=== PATIENT | male | born 1955 | race Caucasian/White ===

== ENCOUNTER 2020-07-30 08:15 | Day surgery (SDC) | payer MEDICARE, OTHER ==
[~2020-07-30] VITALS: Ht 162.6 cm; Wt 57.7 kg
[~2020-07-30 08:15] MED LIST: NO HOME MEDICATIONS; NORCO 325 MG-7.1 TAB PO; PROSCAR 5MG5 MG PO; ROXICODONE 55 MG/TAB PO
[2020-07-30 09:10] VITALS: BP 119/75; PULSE 59; TEMP 98.8
[2020-07-30 10:05] VITALS: BP 103/73; PULSE 80; TEMP 97.1
--- NOTE | 2020-07-30 10:05 | NUR ---
Pt to GI bay 4 via cart from [facility]. Pt drowsy, but awakens easily. Pt denies pain or nausea. Pt ambulates to recliner with stand by assistance x2. Warm blankets provided. Coffee given per pt request. in room so that can consultate with both of them. Call light within reach.
[2020-07-30 10:20] VITALS: BP 109/96; PULSE 66
--- NOTE | 2020-07-30 10:20 | NUR ---
in room consulting with pt and . Call light within reach.
[2020-07-30 10:35] VITALS: BP 134/70; PULSE 59
--- NOTE | 2020-07-30 10:35 | NUR ---
IV site discontinued with all parts intact. Discharge instructions reviewed. Pt and voice understanding. Pt up to dress. Call light within reach.
--- NOTE | 2020-07-30 10:55 | NUR ---
Pt escorted to private car via wheel chair. Pt accompanied home by his .
== END 2020-07-30 10:55 | disposition home or self-care (01) ==
LOC: SDCO 08:15
DX: C16.0 Malignant neoplasm of cardia (principal); K21.9 Gastro-esophageal reflux disease without esophagitis; K22.2 Esophageal obstruction; K44.9 Diaphragmatic hernia without obstruction or gangrene; F17.290 Nicotine dependence, other tobacco product, uncomplicated; Z79.899 Other long term (current) drug therapy
CPT/HCPCS: J2704; J7120

== ENCOUNTER → 2020-08-21 | Outpatient (CLI) | payer MEDICARE, OTHER | LOC: COL.RAD 08:07 | DX: C15.9 Malignant neoplasm of esophagus, unspecified (principal) | CPT/HCPCS: A9585 ==

== ENCOUNTER → 2020-09-10 | Outpatient (CLI) | payer MEDICARE, OTHER ==
[~2020-09-10] MED LIST changes: +FLOMAX 0.40.4 MG/CAP PO; +OXYCODONE H5 MG/5 ML PO; +SODIUM BICARBO650 MG PO; +TYLENOL 500MG500 MG PO; +ZOFRAN ODT4 MG PO
== END ==
LOC: COL.LAB 09:54
DX: Z20.822 Contact with and (suspected) exposure to COVID-19 (principal)

== ENCOUNTER → 2020-09-23 | Outpatient (CLI) | payer MEDICARE, OTHER | LOC: COL.LAB 08:41 | DX: Z20.822 Contact with and (suspected) exposure to COVID-19 (principal) ==

== ENCOUNTER 2020-11-07 10:23 | Inpatient (IN) | payer MEDICARE, OTHER ==
[~2020-11-07 10:23] MED LIST changes: -FLOMAX 0.40.4 MG/CAP PO; -OXYCODONE H5 MG/5 ML PO; -SODIUM BICARBO650 MG PO; -TYLENOL 500MG500 MG PO; -ZOFRAN ODT4 MG PO
[2020-11-07] MEDS ORDERED: OXYCODONE H5 MG/5 ML PO (10:57)
[2020-11-07] MEDS ORDERED: FLOMAX 0.40.4 MG/CAP PO (10:58)
[2020-11-07] MEDS ORDERED: ZOFRAN ODT4 MG PO (10:59)
[2020-11-07] MEDS ORDERED: SODIUM BICARBO650 MG PO (10:59)
[2020-11-07] MEDS ORDERED: TYLENOL 500MG500 MG PO (11:00)
--- NOTE | 2020-11-07 12:17 | NUR ---
Pt recieved FOLFOX (oxaliplatin and Fluorouracil) with the infusion ending on 10/29. This should have cleared his system at this point as is present in stool for 5 days after infusion. The office nurse did advise me that his K+ has been running low with after treatment labs showing 3.4 but over the last few days has been 2.5-2.7 with recieving 80mEq in that 2 day time period.
[2020-11-07 12:18] VITALS: BP 95/69; PULSE 109; TEMP 97.3
[2020-11-07 13:41] LABS: HEMATOCRIT 44.2 % (42.0-52.0); HEMOGLOBIN 14.3 g/dl (13.5-18.0); MEAN CELL VOLUME 90 fl (80.0-100.0); MEAN CORPUSCULAR HEMOGLOBIN 29 pg (27.0-31.0); MEAN CORPUSCULAR HGB CONC 32 g/dl (33.0-37.0); MEAN PLATELET VOLUME 12.5 fl (7.4-10.4); PLATELET COUNT 92 K/mm3 (130-400); RED BLOOD COUNT 4.93 M/mm3 (4.20-5.60); REDCELL DISTRIBUTION WIDTH-CV 15.5 % (11.5-14.5)
--- NOTE | 2020-11-07 13:48 | NUR ---
Unable to get blood specimen from port despite repositioning pt. Old needle flushed and dc'd. Following protocal, skin prepped with chlorhexadine, pt reports that skin prep felix and small areas of irritation noted. Accessed port with 1" ascencio needle and able to get blood return easily. Labs drawn after line flushed and waste blood discarded. New dressing and cap applied.
[2020-11-07 13:53] LABS: ALBUMIN 2.9 gm/dL (3.5-5.0); BILIRUBIN,TOTAL 0.3 mg/dL (0.0-1.0); CALCIUM 8.8 mg/dL (8.4-10.2); CREATININE, serum 1.22 (0.66-1.25); TOTAL PROTEIN 5.8 gm/dL (6.4-8.2)
[2020-11-07 13:57] LABS: POTASSIUM 2.6 mmol/L (3.4-5.0)
[2020-11-07 14:53] LABS: BAND 20 % (0-10); BASOPHIL 1 % (0-2); LYMPHOCYTE 11 % (20.0-51.0); MYELOCYTE 2 % (0-0); NEUTROPHILS 38 % (42.0-75.2)
[2020-11-07 14:54] LABS: ANISOCYTOSIS 1+; PLATELET ESTIMATE DECREASED (NORMAL)
[2020-11-07 14:55] LABS: HYPOCHROMIA 1+
[2020-11-07 16:43] LABS: COLLECTION METHOD CLEAN CATCH
[2020-11-07 16:54] LABS: MUCOUS Present /lpf; PH 6 (5-8); SQUAMOUS EPITHELIAL 0-2 /hpf; URINE APPEARANCE Hazy; URINE BACTERIA None Seen /hpf; URINE BILIRUBIN Negative (NEGATIVE); URINE BLOOD Negative (NEGATIVE); URINE COLOR Yellow; URINE GLUCOSE Negative (NEGATIVE); URINE KETONE Negative (NEGATIVE); URINE LEUKOCYTE ESTERASE Negative (NEGATIVE); URINE NITRATE Negative (NEGATIVE); URINE PROTEIN(semi-quant) 1+ (NEGATIVE); URINE RBC 0-2 /hpf; URINE UROBILINOGEN Negative (NEGATIVE)
[2020-11-07 16:57] VITALS: BP 80/54; PULSE 124; TEMP 97.8
[2020-11-07 17:36] VITALS: BP 84/54; PULSE 113
--- NOTE | 2020-11-07 17:58 | NUR ---
Patient sitting up in bed, at the bedside. A&Ox3, not able to talk much so has been speaking for the patient. Port CDI, fluids infusing. VSS, BP hypotensive, doctor aware. Peg tube RLQ, CDI, clamped. SCD bilateral legs. No further needs expressed from the patient. Call light within reach.
[2020-11-07 18:28] LABS: CREATININE, serum 1.09 (0.66-1.25); POTASSIUM 3.5 mmol/L (3.4-5.0)
[2020-11-07 21:15] VITALS: BP 93/65; PULSE 81; TEMP 98.3
[2020-11-07 22:12] LABS: CALCIUM 8.2 mg/dL (8.4-10.2); CREATININE, serum 1.08 (0.66-1.25); POTASSIUM 3.5 mmol/L (3.4-5.0)
--- NOTE | 2020-11-07 23:19 | NUR ---
Reviewed lab results with Dr. Ortiz NON: Potassium 20meq IVPB x 1 now, continue 300ml H2o flushes per pej q 2 hours throughout pm shift, will recheck labs in the morning. Updated Doris Deutsch on updated plan of care. Updated patient on plan of care changes. Verbalized understanding.
[2020-11-07 23:21] VITALS: BP 144/64; PULSE 112; TEMP 97.9
[2020-11-08 00:30] LABS: CLOSTRIDIUM DIFF A/B NEG; CLOSTRIDIUM DIFF A/B INTERP No C.diff present
[2020-11-08 03:09] LABS: CALCIUM 8.1 mg/dL (8.4-10.2); CREATININE, serum 1.04 (0.66-1.25); POTASSIUM 3.5 mmol/L (3.4-5.0)
[2020-11-08 03:55] VITALS: BP 122/71; PULSE 117; TEMP 97.8
[2020-11-08 06:34] LABS: HEMATOCRIT 38.3 % (42.0-52.0); HEMOGLOBIN 12.4 g/dl (13.5-18.0); MEAN CELL VOLUME 90 fl (80.0-100.0); MEAN CORPUSCULAR HEMOGLOBIN 29 pg (27.0-31.0); MEAN CORPUSCULAR HGB CONC 32 g/dl (33.0-37.0); MEAN PLATELET VOLUME 12.5 fl (7.4-10.4); PLATELET COUNT 79 K/mm3 (130-400); RED BLOOD COUNT 4.27 M/mm3 (4.20-5.60); REDCELL DISTRIBUTION WIDTH-CV 15.7 % (11.5-14.5)
[2020-11-08 06:50] LABS: CREATININE, serum 0.95 (0.66-1.25); MAGNESIUM 2.6 mg/dL (1.6-2.3); POTASSIUM 3.3 mmol/L (3.4-5.0)
[2020-11-08 07:36] VITALS: BP 126/77; PULSE 55; TEMP 98.2
--- NOTE | 2020-11-08 08:00 | NUR ---
Patient sleeping in bed, easily awakened with verbal command. A&Ox4. VSS. IV CDI, fluids infusing. Denies pain and discomfort. Patient incontinent of BM and unaware. Nurse assisted patient to the bathroom and cleaning up. Patient refused SCD's. Pillow on right side, sacral area red. No further needs expressed from the patient. Call light within reach
[2020-11-08 08:43] LABS: PATHOLOGY DIFF REVIEW OK
[2020-11-08 11:12] LABS: CALCIUM 8.1 mg/dL (8.4-10.2); CREATININE, serum 0.88 (0.66-1.25); POTASSIUM 4.4 mmol/L (3.4-5.0)
[2020-11-08 11:14] VITALS: BP 105/66; PULSE 97; TEMP 98.1
[2020-11-08 16:00] VITALS: BP 101/55; PULSE 108; TEMP 98.1
[2020-11-08 16:27] LABS: CREATININE, serum 0.75 (0.66-1.25); POTASSIUM 3.8 mmol/L (3.4-5.0)
--- NOTE | 2020-11-08 18:08 | NUR ---
Patient had an uneventful day, complaints of being tired and just wanting to get some sleep. A&Ox4. VSS. IV CDI. Started J tube feeds and patient tolerating well. Nurse instructing patient to distribute weight to prevent pressure sore. Pain reported in mid chest, pain medication given when requested. No further needs expressed from the patient. Call light within reach
[2020-11-08 19:35] VITALS: BP 103/59; PULSE 100; TEMP 98.3
[2020-11-08 22:35] LABS: CALCIUM 7.9 mg/dL (8.4-10.2); CREATININE, serum 0.69 (0.66-1.25); POTASSIUM 3.4 mmol/L (3.4-5.0)
[2020-11-08 23:02] VITALS: BP 93/62; PULSE 112; TEMP 98.3
[2020-11-09 03:17] VITALS: BP 97/60; PULSE 62; TEMP 98
[2020-11-09 07:28] VITALS: BP 95/62; PULSE 107; TEMP 98.2
[2020-11-09 09:40] LABS: HEMOGLOBIN 12.2 g/dl (13.5-18.0); MEAN CELL VOLUME 89 fl (80.0-100.0); MEAN CORPUSCULAR HEMOGLOBIN 30 pg (27.0-31.0); MEAN CORPUSCULAR HGB CONC 33 g/dl (33.0-37.0); PLATELET COUNT 90 K/mm3 (130-400); RED BLOOD COUNT 4.14 M/mm3 (4.20-5.60); REDCELL DISTRIBUTION WIDTH-CV 15.4 % (11.5-14.5)
[2020-11-09 09:43] LABS: HEMATOCRIT 36.8 % (42.0-52.0)
[2020-11-09 09:57] LABS: CALCIUM 7.9 mg/dL (8.4-10.2); CREATININE, serum 0.6 (0.66-1.25); POTASSIUM 3.3 mmol/L (3.4-5.0)
[2020-11-09 10:22] LABS: BAND 1 % (0-10); EOSINOPHIL 1 % (0-4); LYMPHOCYTE 8 % (20.0-51.0); NEUTROPHILS 83 % (42.0-75.2)
[2020-11-09 10:23] LABS: ANISOCYTOSIS 1+; PLATELET ESTIMATE DECREASED (NORMAL)
[2020-11-09 12:49] VITALS: BP 98/58; PULSE 105; TEMP 97.4
[2020-11-09 16:38] VITALS: BP 97/63; PULSE 113; TEMP 98
--- NOTE | 2020-11-09 17:40 | NUR ---
PATIENT HAS HAD DIFFICULT DAY, REQUIRING PAIN MEDICATION 2X AND ANTINAUSEANT 1X. PATIENT IS CURRENTLY RECEIVING IV K+ FOR REPLACEMENT THERAPY ORDERED THIS AFTERNOON. PATIENT IS HOPING TO DC TOMORROW.
[2020-11-09 19:13] VITALS: BP 105/61; PULSE 103; TEMP 98
[2020-11-10 00:23] VITALS: BP 104/73; PULSE 111; TEMP 98.5
[2020-11-10 05:12] LABS: HEMOGLOBIN 11.4 g/dl (13.5-18.0); MEAN CELL VOLUME 90 fl (80.0-100.0); MEAN CORPUSCULAR HEMOGLOBIN 29 pg (27.0-31.0); MEAN CORPUSCULAR HGB CONC 32 g/dl (33.0-37.0); MEAN PLATELET VOLUME 12.3 fl (7.4-10.4); PLATELET COUNT 102 K/mm3 (130-400); RED BLOOD COUNT 3.92 M/mm3 (4.20-5.60); REDCELL DISTRIBUTION WIDTH-CV 15.4 % (11.5-14.5)
[2020-11-10 05:21] LABS: HEMATOCRIT 35.2 % (42.0-52.0)
[2020-11-10 05:22] LABS: ALBUMIN 2.4 gm/dL (3.5-5.0); BILIRUBIN,TOTAL 0.2 mg/dL (0.0-1.0); CALCIUM 7.7 mg/dL (8.4-10.2); CREATININE, serum 0.49 (0.66-1.25); MAGNESIUM 2.2 mg/dL (1.6-2.3); PHOSPHOROUS 1.7 mg/dL (2.5-4.5); POTASSIUM 4.2 mmol/L (3.4-5.0)
[2020-11-10 05:27] VITALS: BP 98/55; PULSE 59; TEMP 98.8
[2020-11-10 05:30] LABS: PRE ALBUMIN 13.2 mg/dL (17.6-36.0)
[2020-11-10 05:49] LABS: BAND 3 % (0-10); LYMPHOCYTE 14 % (20.0-51.0); NEUTROPHILS 77 % (42.0-75.2); PLATELET ESTIMATE DECREASED (NORMAL)
--- NOTE | 2020-11-10 06:31 | NUR ---
Resting quietly, denies needs at this time, medicated for pain throughout vp respiratory with prn MSo4 per MAR with good effect, VS stable, reviewed labs this am, updated on plan of care.
[2020-11-10 07:46] VITALS: BP 106/49; PULSE 63; TEMP 97.8
--- NOTE | 2020-11-10 10:30 | NUR ---
Pt napping upon entry, easily awakened. Shift assessments complete, left Pt call light in reach, bed in lowest position.
[2020-11-10 11:21] VITALS: BP 105/45; PULSE 106; TEMP 98.9
--- NOTE | 2020-11-10 15:27 | NUR ---
Pt discharged to home. Port deaccessed, flushed with 10 ml NS, heparinized with 5 ML heparin flush. discussed discharge packet with Pt and spouse, answered questions. Pt escorted to entrance via WC by PCT.
--- NOTE | 2020-11-10 16:48 | NUR ---
Occupational Therapist'S Assistant attended clinical rounds with the team. The patient's present. Discharge home today, 11/10 with [facility]. PT/OT/Detention. After rounds, GREGORY met with the patient to complete intake. The patient lives with his , Ana outside of [place]. The patient has a walker, cane, and pump for his peg tub. The patient receives some assistance with ADLs from Rosine. The patient receives home health from [facility]. They would like to continue with [facility] at discharge. Clinical updates and discharge orders faxed. The patient receives medical care at [facility] and receieves medications at [facility]. The plan is to return home at discharge with [facility]. GREGORY contacted Lizet with [facility] and confirmed he does have services and were going to discharge him this day. They will accept the patient for services once again. *Discharge plan: Home with Ana and [facility].
== END 2020-11-10 15:30 | disposition home health service (06) | DRG 640 ==
LOC: MEDICAL 10:23
PROVIDERS: Physician Assistant; ADMIT Internal Medicine
DX: E86.0 Dehydration (principal); E43 Unspecified severe protein-calorie malnutrition; C15.9 Malignant neoplasm of esophagus, unspecified; Z68.1 Body mass index [BMI] 19.9 or less, adult; R19.7 Diarrhea, unspecified; Z87.891 Personal history of nicotine dependence; N40.0 Benign prostatic hyperplasia without lower urinary tract symptoms; E87.6 Hypokalemia; D69.6 Thrombocytopenia, unspecified; E87.0 Hyperosmolality and hypernatremia; E87.8 Other disorders of electrolyte and fluid balance, not elsewhere classified; R53.81 Other malaise; I95.9 Hypotension, unspecified; E83.39 Other disorders of phosphorus metabolism; D72.829 Elevated white blood cell count, unspecified
CPT/HCPCS: 99232-AI; 99239; J2270; J2405; J3480; J7050; J7070

== ENCOUNTER → 2020-12-29 | Outpatient (CLI) | payer MEDICARE, OTHER ==
[~2020-12-29] MED LIST changes: +FLOMAX 0.40.4 MG/CAP PO; +OXYCODONE H5 MG/5 ML PO; +SODIUM BICARBO650 MG PO; +TYLENOL 500MG500 MG PO; +ZOFRAN ODT4 MG PO
== END ==
LOC: COL.PUL 10:28
DX: C15.5 Malignant neoplasm of lower third of esophagus (principal)

== ENCOUNTER → 2021-01-12 | Outpatient (CLI) | payer MEDICARE, OTHER | LOC: ZCOL.LAB 08:50 | DX: Z20.822 Contact with and (suspected) exposure to COVID-19 (principal) ==

== ENCOUNTER → 2021-02-20 | Outpatient (CLI) | payer MEDICARE, OTHER | LOC: ZCOL.LAB 10:39 | DX: Z20.822 Contact with and (suspected) exposure to COVID-19 (principal) ==

== ENCOUNTER → 2021-03-19 | Outpatient (CLI) | payer MEDICARE, OTHER | LOC: ZCOL.LAB 16:25 | DX: Z20.822 Contact with and (suspected) exposure to COVID-19 (principal) ==

== ENCOUNTER 2021-08-04 12:37 | Inpatient (IN) | payer MEDICARE, OTHER ==
[~2021-08-04] VITALS: Ht 162.6 cm; Wt 48.6 kg
[2021-08-04 13:28] LABS: BASO % 0.1 % (0.0-2.0); GRAN # 10.7 K/mm3 (1.4-6.5); GRAN % 84.1 % (42.2-75.2); HEMATOCRIT 45.4 % (42.0-52.0); HEMOGLOBIN 14.9 g/dl (13.5-18.0); LYMPH # 1.2 K/mm3 (1.2-3.4); LYMPH % 9.4 % (20.0-51.0); MEAN CELL VOLUME 84 fl (80.0-100.0); MEAN CORPUSCULAR HEMOGLOBIN 28 pg (27-31); MEAN CORPUSCULAR HGB CONC 33 g/dl (33.0-37.0); MEAN PLATELET VOLUME 10.7 fl (7.4-10.4); MONO # 0.8 K/mm3 (0.1-0.6); MONO % 5.9 % (1.7-9.3); PLATELET COUNT 267 K/mm3 (130-400); RED BLOOD COUNT 5.42 M/mm3 (4.20-5.60); REDCELL DISTRIBUTION WIDTH-CV 15.6 % (11.5-14.5)
[2021-08-04 13:51] LABS: ALANINE AMINOTRANSFERASE 110 U/L (0-55); ALKALINE PHOSPHATASE 132 U/L (40-150); ANION GAP 11 mmol/L (7-16); AST,SGOT 43 U/L (5-34); BILIRUBIN,TOTAL 0.9 mg/dL (0.2-1.2); BLOOD UREA NITROGEN 21 mg/dL (8-26); CALCIUM 9.3 mg/dL (8.4-10.2); CARBON DIOXIDE 24 mmol/L (23-31); CHLORIDE 104 mmol/L (98-107); CREATININE, serum 0.72 mg/dL (0.72-1.25); GLUCOSE 190 mg/dL (70-99); LIPASE < 10 U/L (8-78); POTASSIUM 3.6 mmol/L (3.5-4.5); SODIUM 139 mmol/L (136-145); TOTAL PROTEIN 7.6 gm/dL (6.2-8.1)
[2021-08-04] MEDS ORDERED: NEURONTIN250 MG/5 M (14:38)
[2021-08-04] MEDS ORDERED: ROBAXIN 50500 MG/TAB PEG (14:39)
[2021-08-04] MEDS ORDERED: ULTRAM 50MG TAB50 MG PO (14:40)
[2021-08-04 15:17] LABS: COLLECTION METHOD CLEAN CATCH
[2021-08-04 15:26] LABS: MUCOUS Present (NOT PRESENT); PH 8 (5-8); SQUAMOUS EPITHELIAL None Seen /hpf (0-10); URINE APPEARANCE Clear (CLEAR/HAZY); URINE BACTERIA Rare /hpf (NONE SEEN); URINE BILIRUBIN Negative (NEGATIVE); URINE BLOOD Negative (NEGATIVE); URINE COLOR Yellow (YELLOW); URINE GLUCOSE Negative (NEGATIVE); URINE KETONE Negative (NEGATIVE); URINE LEUKOCYTE ESTERASE Trace (NEGATIVE); URINE NITRATE Positive (NEGATIVE); URINE PROTEIN(semi-quant) Negative (NEGATIVE); URINE UROBILINOGEN Negative (NEGATIVE)
[2021-08-04 17:05] VITALS: BP 150/79; PULSE 104
[2021-08-04] MEDS ORDERED: ACETIV IV (18:15)
--- NOTE | 2021-08-04 20:00 | NUR ---
Pt. sitting up in bed. Pt. is A&OX3, assessment complete. IV to lt. wrist patent, abx infusing per orders. Pt. reports abd. pain at an 8 on pain scale, giving pain meds. Peg tube patent. No residual noted. Pt. denies further needs, call light within reach.
[2021-08-04 20:10] VITALS: BP 133/72; PULSE 87; TEMP 98.8
[2021-08-05] VITALS (7 sets, daily range): BP systolic 127–150; BP diastolic 78–89; PULSE 90–101; TEMP 97.9–99.7
[2021-08-05 06:22] LABS: BASO % 0.2 % (0.0-2.0); GRAN # 8.8 K/mm3 (1.4-6.5); GRAN % 74.5 % (42.2-75.2); HEMATOCRIT 46.1 % (42.0-52.0); HEMOGLOBIN 14.7 g/dl (13.5-18.0); LYMPH # 1.8 K/mm3 (1.2-3.4); MEAN CELL VOLUME 86 fl (80.0-100.0); MEAN CORPUSCULAR HEMOGLOBIN 28 pg (27-31); MEAN CORPUSCULAR HGB CONC 32 g/dl (33.0-37.0); MEAN PLATELET VOLUME 10.9 fl (7.4-10.4); MONO # 1.2 K/mm3 (0.1-0.6); MONO % 9.9 % (1.7-9.3); PLATELET COUNT 264 K/mm3 (130-400); RED BLOOD COUNT 5.35 M/mm3 (4.20-5.60); REDCELL DISTRIBUTION WIDTH-CV 15.7 % (11.5-14.5)
[2021-08-05 06:23] LABS: CALCIUM 9.2 mg/dL (8.4-10.2); CREATININE, serum 0.75 mg/dL (0.72-1.25); POTASSIUM 3.8 mmol/L (3.5-4.5)
--- NOTE | 2021-08-05 09:31 | NUR ---
GREGORY met with the patient and his , Ana (ph#[phone], h.ph#[phone]), to discuss discharge plan. The patient was sleeping. The patient lives in [place] with his , son, [id number], and two grandchildren. Ana reports that the patient needs some assistance with ADLs and has a cane and walker. She states that she assists the patient with his ADLs. The patient has a peg tube and receives tube feeds. Ana reports that they receive his feedings from [facility] in [place] and [employer] delivers the feedings monthly. Ana reports that the patient does not have a PCP. She states that he used to go to [facility], when needed, but has not in awhile. She states that he sees an oncologist, gastrologist, and a surgeon at . GREGORY asked if they would be interested in the hospital getting him set up with a PCP. His declined and states that they would just be interested in a list of [place] providers. GREGORY provided her with that list. Ana reports that the patient does not have a DPOA-HC, but they were interested in obtaining a form. GREGORY provided. Ana reports that the plan is for the patient to return home with her and their family upon discharge. She inquired if the patient would qualify for hospice. GREGORY informed her that with the patient's esophageal cancer, it is likely he has a qualifying hospice diagnosis. GREGORY informed her what hospice is and the different locations they can receive hospice. His verbalized understanding. She reports that they are not ready for hospice yet. Ana report that the plan is for the patient to return back home with her and their family upon discharge. SW to continue to monitor. *Discharge plan: home with family*
--- NOTE | 2021-08-05 09:46 | NUR ---
PT RESTING IN BED. AT BEDSIDE WITH UPDATED MED LIST WHICH WAS UPDATED IN [employer]. IV ABX GIVEN ORDERED. PT DENIES NEEDS AT THIS TIME. BROUGHT TUBE FEED THAT PT NORMALLY USES AT HOME.
--- NOTE | 2021-08-05 11:36 | NUR ---
First visit from the netsuite developer. NO needs right now.
--- NOTE | 2021-08-05 15:52 | NUR ---
PT REFUSING LOVENOX INJECTIONS.
--- NOTE | 2021-08-05 16:35 | NUR ---
PT CONTINUES TO REFUSE OFFERS OF TUBE FEED. PT'S BROUGHT HOME TUBE FEED IN FOR HIM. HE REPORTS NAUSEA REASON OF REFUSAL. IV PHENERGAN GIVEN Q 4 PRN.
--- NOTE | 2021-08-05 20:10 | NUR ---
Pt. sitting up in bed. Pt. is A&OX3, assessment complete. IV to lt. ac patent. IV fluids infusing per orders. Pt.'s set up tube feeding on kangaroo pump, running at 68 ml/hr. Pt. tolerateing. Pt. reports pain to abd at an 8 on pain scale, giving pain meds per orders. Pt. also requests nausea meds, giving phenergan. Pt. denies further needs, call light within reach.
[2021-08-06 00:41] VITALS: BP 124/68; PULSE 92; TEMP 99.3
[2021-08-06 04:51] VITALS: BP 121/67; PULSE 92; TEMP 98.4
[2021-08-06 05:47] LABS: BASO % 0.2 % (0.0-2.0); EOS % 0.3 % (0.0-4.0); GRAN # 8.6 K/mm3 (1.4-6.5); GRAN % 78.5 % (42.2-75.2); HEMATOCRIT 43.3 % (42.0-52.0); HEMOGLOBIN 13.9 g/dl (13.5-18.0); LYMPH # 1.1 K/mm3 (1.2-3.4); LYMPH % 9.8 % (20.0-51.0); MEAN CELL VOLUME 85 fl (80.0-100.0); MEAN CORPUSCULAR HEMOGLOBIN 27 pg (27-31); MEAN CORPUSCULAR HGB CONC 32 g/dl (33.0-37.0); MONO # 1.2 K/mm3 (0.1-0.6); MONO % 10.7 % (1.7-9.3); PLATELET COUNT 264 K/mm3 (130-400); RED BLOOD COUNT 5.08 M/mm3 (4.20-5.60); REDCELL DISTRIBUTION WIDTH-CV 15.6 % (11.5-14.5)
[2021-08-06 06:03] LABS: CALCIUM 8.6 mg/dL (8.4-10.2); CREATININE, serum 0.73 mg/dL (0.72-1.25); POTASSIUM 3.5 mmol/L (3.5-4.5)
[2021-08-06 07:52] VITALS: BP 130/70; PULSE 96; TEMP 99
--- NOTE | 2021-08-06 07:57 | NUR ---
Pt assessment complete. Pt is laying in bed upon entry, he is A/O x4. His breathing is even and unlabored on RA. Pt denies SOB. Pain to abdomen, worsened with flushing and med administration. N/V present, after flushing site pt spits up clear phlegm. Attempted to have a BM this morning but states he was unsuccessful and it has been a few days. Tube feedings resumed to complete. PRN Phenergan administered. Call light within reach.
--- NOTE | 2021-08-06 09:39 | NUR ---
Initial visit; Patient thanked Farmer And Grazier for offering comfort and prayer. Patient seems uncomfortable and quietly distraught.
--- NOTE | 2021-08-06 11:24 | NUR ---
Met with , Ana, at bedside. She is tearful but states this is no way for her to keep living and she knows he is suffering. We talked about comfort care, DNR/DNI status, and hospice options. She feels it is time as his tube feedings are the only thing sustaining life and more cancer has been found. Had Dr. Chase come to bedside and Ana confirmed DNR/DNI and comfort care but continue tube feeds until able to transition to the hospice house. Call made to [facility], she stated they are still taking it day-by-day but we can still get the referral started and check back tomorrow. Ana notified of this and she stated she was going home to talk with her children and grandchildren.
[2021-08-06 12:07] VITALS: BP 138/76; PULSE 88; TEMP 98.5
--- NOTE | 2021-08-06 12:56 | NUR ---
Pt sleeping comfortably at this time.
--- NOTE | 2021-08-06 13:50 | NUR ---
A palliative care consult was ordered. Jeanna, Palliative Care RN, met with the patient and his (Ana). Ana would like to pursue comfort measures and have the patient transitioned to the hospice house. She would like to keep him on his tube feedings until he gets over to the hospice house. Jeanna faxed a referral to [facility]. [facility] is taking admissions day-by-day, but will follow up with us on when they can take. The patient also does not have a PCP, so they will need to see if their medical care manager will follow the patient. *Discharge plan: [facility], one a bed is available*
[2021-08-06 15:55] VITALS: BP 118/76; PULSE 92; TEMP 98.8
--- NOTE | 2021-08-06 16:17 | NUR ---
Pt sleepy this afternoon but reports back spasms, PRN Kala administered. PT's IV hurting him, despite flushing without complications no edema, but some redness present. DC'd IV, accessed PAC with 1" ascencio needle. IVF resumed to site. No needs at this time. Call light within reach.
[2021-08-06 20:15] VITALS: BP 139/81; PULSE 92; TEMP 98.4
--- NOTE | 2021-08-06 20:22 | NUR ---
PT MEDICATED WITH HS MEDS PER PEG TUBE, INCLUDING ROXANOL. PTS INITIATED HIS TUBE FEEDING, INFUSING WITHOUT PROBLEM. REPORTS ONLY URINATING SMALL AMOUNTS AT A TIME.
--- NOTE | 2021-08-06 23:20 | NUR ---
PT COMPLAINS OF NOT URINATING, BLADDER SCANNED FOR 375.
[2021-08-07 00:02] VITALS: BP 141/83; PULSE 103; TEMP 97.6
--- NOTE | 2021-08-07 00:23 | NUR ---
PT PREFERRED TO BE STRAIGHT CATHED. OBTAINED 600CC AFTER CATHING, PT TOLERATED PROCEDURE WELL AND FEELS BETTER.
[2021-08-07 04:06] VITALS: BP 142/77; PULSE 99; TEMP 97.8
--- NOTE | 2021-08-07 05:31 | NUR ---
PT HAS RESTED WELL AFTER STRAIGHT CATH. HAS NOT VOIDED SINCE. TUBE FEEDING CONTINUES WELL IVF.
[2021-08-07] MEDS ORDERED: DULCOLAX S10 MG/SUPP RC (07:39)
[2021-08-07] MEDS ORDERED: TRANSDERM-0.5 MG/21 TD (07:40)
[2021-08-07 07:46] VITALS: BP 107/69; PULSE 104; TEMP 98.2
[2021-08-07] MEDS ORDERED: SYSTANE 0.3-0.1 EACH OP (08:48)
[2021-08-07] MEDS ORDERED: COLACE LIQUI10 MG/ML PEG (08:49)
[2021-08-07] MEDS ORDERED: ATIVAN 0.50.5 MG/TAB PO (08:53)
[2021-08-07] MEDS ORDERED: ROXANOL 20MG20 MG/ML SL (08:53)
--- NOTE | 2021-08-07 09:58 | NUR ---
Report received from fast food shift supervisor. Patient resting in bed. Full body assessment completed and vital signs are WNL. Morning medications were administered via PEG tube. Patient tolerated medications well. Patient states that his pain is 7/10, PRN pain medication given. Patient also complains of constipation, this nurse informed the patient that a stool softner was given with his other medications. Patient has no other complaints at this time. Call light within reach.
--- NOTE | 2021-08-07 10:39 | NUR ---
Took comfort quilt in to patient, at bedside. Patient alert today. Notified of current plan with hospice house. Patient had no awareness of conversation yesterday and is tearful that he is now dealing with his poor prognosis.
[2021-08-07 12:49] VITALS: BP 141/80; PULSE 107; TEMP 98.1
--- NOTE | 2021-08-07 12:57 | NUR ---
GREGORY staffed with palliative care nurseJeanna. The hospice house does not have a bed today. They are also working on getting their medical management specialist to follow the patient while there. *Discharge plan: Hospice House once a bed is available*
[2021-08-07 15:34] VITALS: BP 146/78; PULSE 102; TEMP 98.7
--- NOTE | 2021-08-07 15:54 | NUR ---
Patient was voiding small amounts and the bladder scan revealed greater than 600mls. Received order for straight cath BID. Performed straight cath and drained 550ml. Patient stated that his bladder felt better and less bloated. No other complaints or needs at this time. Call light within reach.
--- NOTE | 2021-08-07 19:37 | NUR ---
PT REPORTS ABD PAIN. ROXANOL 20MG PER PEG TUBE GIVEN. AT BEDSIDE, SHE INITIATED TUBE FEEDING FROM HOME AT THIS TIME. PT REPORTS URINATING IN BR AND AGAIN IN URINAL AT BEDSIDE.
[2021-08-07 19:39] VITALS: BP 118/76; PULSE 98; TEMP 98.4
--- NOTE | 2021-08-07 20:19 | NUR ---
HS MEDS GIVEN PER GTUBE INCLUDING ROBAXIN FOR ABD SPASM.
[2021-08-08 00:20] VITALS: BP 104/71; PULSE 108; TEMP 98.5
--- NOTE | 2021-08-08 03:03 | NUR ---
PT URINATING SMALL AMOUNTS, ASKED TO BE STRAIGHT CATHED. OBTAINED 600CC OF YELLOW URINE WITH STRAIGHT CATH, PT TOLERATED WELL. ALSO MEDICATED WITH ROXANOL 20MG PER GTUBE AT THIS TIME.
[2021-08-08 04:24] VITALS: BP 106/64; PULSE 115; TEMP 98
[2021-08-08 07:17] VITALS: BP 117/65; PULSE 111; TEMP 98.6
--- NOTE | 2021-08-08 15:51 | NUR ---
Attempt made to contact the [facility] and was unsuccessful.
--- NOTE | 2021-08-08 18:59 | NUR ---
NAUSEA IMPROVED AFTER ADDING ATIVAN, PT RESTING MORE COMFORTABLY. PT CONTINUED TO STRUGGLE TO VOID. NUNEZ CATHETER PLACED WITH 475 CC CLEAR, YELLOW URINE. SPOUSE AND SISTER FROM [place] AT BEDSIDE MOST OF SHIFT. PLAN TO D/C TO HOSPICE HOUSE WHEN BED AVAILABLE.
--- NOTE | 2021-08-08 20:48 | NUR ---
PT MEDICATED WITH HS MEDS INCLUDING ROBAXIN AND ROXINOL. PT DROWSY. IN BED WITH TUBE FEEDING RUNNING PER PATENT PEG TUBE. RT PORT ACCESSED, NO IVF INFUSING. NUNEZ CATHETER TO BSD WITH YELLOW URINE. COMFORT CARE.
--- NOTE | 2021-08-09 04:00 | NUR ---
PT HAD COVERS OFF, REPORTS PAIN AT CATHETER SITE. REPOSITIONED UP IN BED. PT ASKING WHERE HIS "BETTER HALF" IS. REORIENTED TO TIME OF DAY. BED ALARM SET.
--- NOTE | 2021-08-09 09:55 | NUR ---
PAIN MEDICAITON WAS ATTEMPTED TO GIVEN VIA PEG TUBE. MEDICATION WAS PLACED IN SYRINGE AND THEN GOT KNOCKED OVER AND SPILLED ONTO PT SHEETS. NEW MEDICATION WAS GOTTEN OUT OF PYXIS AND ADMINISTERED VIA PEG TUBE. PT AND SISTER AT BEDSIDE. PT STATES THAT HE DOES NOT NEED ANYTHIGN ELSE AT THIS TIME. CALL LIGHT IS PLACED WITHIN REACH.
--- NOTE | 2021-08-09 12:37 | NUR ---
PT LAYING IN BED WITH FAMILY AT BEDSIDE. PT STATES THAT HE IS HAVING SOME PAIN OF 7 OUT OF 10 IN HIS NECK AND ABD. PAIN MEDICATIONS WERE GIVEN VIA PEGTUBE. PT STATES NO OTHER NEEDS AT THIS TIME. CALL LIGHT IS WITHIN REACH.
--- NOTE | 2021-08-09 18:28 | NUR ---
PT SLEEPING IN BED WITH FAMILY AT BEDSIDE. PT SHOWS NO SIGN OF PAIN OR DISCOMFORT. FAMILY STATES "HE WILL GET HIS LAST FEEDING TONIGHT." FAMILY STATES NO NEEDS AT THIS TIME. CALL LIGHT IS WITHIN REACH.
--- NOTE | 2021-08-09 20:00 | NUR ---
Bedside shift report received, assumed care for overnight babysitter. Assessment complete. A&Ox4. Denies pain/nausea/shortness of breath. Tube feeding currently infusing. Chaney cath with john colored urine. Port to right chest flushes without difficulty-good blood return. Currently on comfort care. Denies current needs. Call light in reach. Will monitor.
--- NOTE | 2021-08-09 23:45 | NUR ---
Requesting pain medication. Rating pain 10/10 on pain scale-described as ache "everywhere." Roxanol given per dr order.
--- NOTE | 2021-08-10 03:11 | NUR ---
C/O pain to bilat arms and legs-rating pain 8/10 on pain scale-described as constant ache. Roxanol given per dr order. Assisted to bathroom with one assist.
--- NOTE | 2021-08-10 05:11 | NUR ---
Received several doses of roxanol overnight for pain. Peg tube feeding was initiated by and continues to infuse at 62ml/hr. Port to right chest flushes well with good blood return. Repositioned as needed. Up to bathroom x1 for stool. Resting with eyes closed at this time. Call light in reach. Will monitor.
--- NOTE | 2021-08-10 08:00 | NUR ---
PATIENT IS A&O BUT DROWSY THIS AM. PATIENT REPORTS HE IS WEAK AND DIDN'T SLEEP WELL. C/O ABD PAIN RATED AT 6-7 ON PAIN SCALE. GAVE PRN ROXINOL WITH OTHER AM MEDS VIA PEG TUBE. TUBE FEEDING RESUMED AND INFUSING INTO PEG TUBE. BRINGS SPECIFIC KIND OF TUBE FEEDINGS, ORDERS FOR TO DO FEEDINGS PER PHYSICIAN. ALSO APPLIED WARM BLANKET TO ABD. PATIENT REPOSITIONED TO COMFORT AND NOW RESTING. HEAD TO TOE ASSESSMENT COMPLETE. PATIENT IS ON COMFORT CARES. NO LABS, NO VIALS, NO ADDITIONAL ORDERS AT THIS TIME. DNR. CLEARS TO COMFORT. PATIENT MOSTLY DENIES TAKING IN MUCH ORALLY, HE WILL TAKE SIPS TO WET HIS MOUTH OCCATIONALLY. RIGHT PORT TO INT. GAVE SCHEDULED IV NAUSEA MEDS PER ORDERS. NUNEZ TO DD WITH SMALL AMOUNTS OF ADELINA COLORED URINE NOTED. NO OTHER NEEDS AT THIS TIME. WILL LIKELY COME LATER TODAY. CALL LIGHT IN REACH.
--- NOTE | 2021-08-10 10:12 | NUR ---
GREGORY contacted Caroline at [facility] to follow up. Caroline reports that they are still on a standstill will rooms and will likely not have a bed available today. Caroline asked for updates. GREGORY to email updates to Caroline at [facility].
--- NOTE | 2021-08-10 10:25 | NUR ---
PATIENT REQUESTING PAIN & ANXIETY MEDS, GIVEN. AT BEDSIDE.
--- NOTE | 2021-08-10 14:00 | NUR ---
PATIENT RESTING UP IN BED WITH FAMILY AT BEDSIDE. WHEN ASKED ABOUT COMFORT, PATIENT NOW REQUESTING SOMETHING FOR PAIN, GIVEN. PATIENT ALSO NOTED SMALL, GREEN-LIQUID STOOL. PATIENT CLEANED UP, CHANGED AND REPOSITIONED TO COMFORT. FAMILY LEAVING FOR A WHILE. PATIENT RESTING WITH LIGHTS TURNED DOWN AND CALL LIGHT IN REACH.
--- NOTE | 2021-08-10 20:52 | NUR ---
PT RESTING IN BED, TUBE FEEDING RUNNING, INITIATED BY PTS . RT PORT ACCESSED, IV MEDS GIVEN WITH GOOD BLOOD RETURN NOTED. NUNEZ CARES GIVEN, URINE YELLOW. COMPLAINS OF PAIN WHEN ARMS MOVED, ROXANOL AND OTHER HS MEDS GIVEN PER GTLACHELLE. SHAVE GIVEN AND ORAL CARES PROVIDED. BED ALARM ON.
--- NOTE | 2021-08-11 02:58 | NUR ---
PT COMPLAINS OF BILATERAL ARM PAIN, ROXANOL 20MG PER PEG TUBE GIVEN.
--- NOTE | 2021-08-11 09:30 | NUR ---
Chaney cares, bed bath, and oral cares given. at bedside, with and patient tearful. Support given. Dr. Magaña rounds. Roxanol given x2 for pain. Encouraged to call with any needs. Pt refuses clear liquids so far this am. Overnight tube feeding continues to infuse, patient would like for bag to run out before unhooking. Am meds given via PEG tube without issue. Call light within reach.
--- NOTE | 2021-08-11 10:26 | NUR ---
GREGORY and Palliative Care RN both confirmed that the hospice house does not have a bed available today. The hospital is ready to discharge the patient. Jeanna, palliative care RN, met with the patient's (Ana) to discuss options. GREGORY then entered the room. Ana reports that she would be interested in [facility] as another option. GREGORY informed Ana that [facility] has not been able to take any admissions lately and asked if she would have another preference, in that event. Ana reports anywhere and would be open to the other two facilities in [place]. GREGORY contacted Johanny at [facility] and confirmed that they are not taking any new admissions, due to having a COVID outbreak and short staff. GREGORY contacted Donita at [facility]. Donita reports that they do not have any private room availability in LTC, which would not allow family to visit currently, with their visitation guidelines. GREGORY contacted Nito at [facility]. Nito asked that GREGORY send them the referral. GREGORY faxed the referral to [facility]. Awaiting screen. GREGORY updated the patient's on the above. *Discharge plan: Hospice at a facility. No facility has been able to take yet or does not have bed availability*
--- NOTE | 2021-08-11 10:38 | NUR ---
Sat with at bedside. She says family has been coming in to visit the patient and she doesn't think he will see the weekend because his pain is getting worse. We discussed if she is open to moving him to another facility for hospice services. Her first choice is [facility] as she lives very close to that facility but otherwise has no preference. Notified SW of choice. Questions answered and support provided to .
--- NOTE | 2021-08-11 12:45 | NUR ---
RN CHECKED ON PATIENT. PT IS CURRENTLY BREATHING 5 RESPIRATIONS/MIN. UNABLE TO WAKE PATIENT UP. PATIENT IS CURRENTLY UNRESPONSIVE. CONTACTING WHO IS NOT HERE AT THIS TIME.
--- NOTE | 2021-08-11 14:11 | NUR ---
ARRIVED AND IS AT BEDSIDE. THE PATIENT HAS RAPIDLY DECLINED. CARMELO BARGER WITH PALLIATIVE CARE HAS BEEN AT BEDSIDE UNTIL THE FAMILY ARRIVED. NO FURTHER CONCERNS, AM ALLOWING FOR PRIVACY, WILL ONLY GO INTO THE ROOM WHEN THE SPOUSE OF THE PATIENT CALLS.
--- NOTE | 2021-08-11 15:31 | NUR ---
FAMILY AT BEDSIDE, PT IS BREATHING 5 RESPIRATIONS PER MINUTE.
--- NOTE | 2021-08-11 15:44 | NUR ---
The patient had a decline in status. The patient's family is at bedside.
--- NOTE | 2021-08-11 19:30 | NUR ---
Bedside shift report received, assumed care for shift production associate. Patient is comfort care-family is at bedside. Respirations 8. Abbreviated assessment complete due to family at bedside comforting one anoter. Plan of care discussed with family to continue comfort care with PRN pain meds/anxiety meds. Encouraged family to call if they think patient is uncomfortable. Verbalizes understanding. Currently patient is unresponsive-appears to be resting comfortably. Call light in reach. Will monitor.
--- NOTE | 2021-08-11 22:15 | NUR ---
Family to desk requesting pain meds for patient. Patient opens eyes and mouth and is more responsive. Roxanol given per dr order. Will monitor.
--- NOTE | 2021-08-12 01:57 | NUR ---
Resting eyes closed. Respiratory rate 10. Family remains at bedside. No s/s of distress noted. Will monitor.
--- NOTE | 2021-08-12 02:38 | NUR ---
Rounding done- and son at bedside. Patient noted to be reaching out in to the air grabbing with occasional moan. Assumed pain present and Roxanol 20mg given at this time. Respiratory rate 10. Will monitor.
--- NOTE | 2021-08-12 05:20 | NUR ---
Ativan given at this time per schedule. Repositioned in bed with pillow support. C/O back/arm/leg pain. Roxanol given per dr order. Respirations 14. /Son remain at bedside. Will continue to monitor.
--- NOTE | 2021-08-12 10:05 | NUR ---
PT RESTING QUIETLY IN BED FAMILY AT BEDSIDE.
--- NOTE | 2021-08-12 10:19 | NUR ---
Follow-up visit; Patient sleeping, Gis Analyst Developer spoke with his and son and reiterated that Gis Analyst Developer is always available to pray with them and offer comfort. They thanked Gis Analyst Developer forlooking in on them.
--- NOTE | 2021-08-12 10:39 | NUR ---
Nito, at [facility], reports that they would require a DPOA-HC. He states that the family would also have to pay $279 a day. GREGORY staffed with Jeanna palliative care RN. The patient has been confused and his status has declined. The patient would not be able to make a DPOA-HC in the state that he is in. GREGORY updated Nito at [facility]. Nito reports that he will need to check with his team if they could the patient now, due to this.
--- NOTE | 2021-08-12 11:36 | NUR ---
Nito, at [facility], reports that they will not be able to accept the patient since he does not have a DPOA-HC. He states that without a DPOA-HC, they cannot get a DNR order for their facility. He states that they cannot accept our DNR order we have here on the patient. GREGORY updated Jeanna with palliative care. SW to update the PA.
--- NOTE | 2021-08-12 19:45 | NUR ---
Pt. laying in bed with family at bedside. Pt. is resting quietly. Shift assessment complete. Pt. is on comfort measures at this time. Given pain meds per family request. Family denies further needs at this time.
--- NOTE | 2021-08-13 09:28 | NUR ---
Follow-up visit; Family would like to move patient to Hospice and asked if Handbook Writer would come and pray with Rivas when the time comes. Handbook Writer will be available throughout the day and will be pleased to pray with patient.
--- NOTE | 2021-08-13 11:05 | NUR ---
Report received from night warehouse manager nurse. Patient is on comfort cares at this time, facility is still waiting for a hospice bed to become avaliable. IV morphine being given every hour per the family's request via port. Patients spouse requests that we no longer give maintenance medications to keep the patient comfortable. Chaney cath still in place with scant amounts of john colored urine. Patient is unresponsive but displays no physical signs of pain. and children at the bed side. Palliative comfort basket requested for the family. Patients family denies any other needs at this time. Call light within reach of the family.
--- NOTE | 2021-08-13 13:47 | NUR ---
Follow-up visit; Heavy Forger Helper contacted a Lead Shop Operator to offer prayer for the dying.
--- NOTE | 2021-08-13 16:35 | NUR ---
GREGORY and the hospitalist met with the patient, his , and two other family members. The hospitalist informed the patient's family that the patient has been stable and we would need to look at the patient transferring to a facility outside of [place] with hospice, due to local facilities unable to take, or home with hospice. The patient's family report that home with hospice would be their last preference, due to having children in the home. They are open to sending referrals to other facilities. GREGORY informed his family that we may run into the issue of a facility not being able to take again, because of not having the DPOA-HC. The patient's family verbalized understanding. GREGORY faxed a referral to [facility], [facility], [facility], and [facility] in [place]. GREGORY gave a referral to Sunny at [facility]. Awaiting screens.
--- NOTE | 2021-08-14 04:51 | NUR ---
PATIENT RESTING QUIETLY PROVIDED WITH MEDICATIONS FOR COMFORT REQUESTED BY FAMILY THIS SHIFT, MOISTURE PROVIDED FOR LIPS AND TONGUE WITH GREEN SWABS MOISTENED WITH WATER, FAMILY REMAINS AT BEDSIDE, NOTED THAT PATIENT HAS STRONG PULSES TO ALL EXTREMITIES. WILL CONTINUE TO MONITOR TO ENSURE COMFORT FOR PATIENT
--- NOTE | 2021-08-14 07:30 | NUR ---
PATIENT IS LETHARGIC BUT AROUSES TO VERBAL STIMULI TODAY, WHICH HE DIDN'T DO YESTERDAY. PATIENT WAS ABLE TO SAY HE WANTED A DRINK. FAMILY CONFIRMED PATIENT OFTEN CHOKES. NURSING GAVE WATER USING ORAL SPUNGES WHICH WORKED WELL. ORAL CARES PROVIDED. IV MORPHINE GIVEN FOR COMFORT. PATIENT IS WAITING FOR HOSPICE BED SINCE LAST WEEK. COMFORT CARES ONLY. DNR. & SON AT BEDSIDE. NO HOME MEDS PER . PEG TUBE CLAMPED. NUNEZ TO DD WITH SMALL AMOUNTS OF DARK ADELINA URINE NOTED. RIGHT PORT PATENT AND TO INT. ROLL BUCKER ACTIVELY WORKING ON HOSPICE ARRANGMENTS.
--- NOTE | 2021-08-14 11:29 | NUR ---
Met with at bedside and [id number] on the phone. They stated that they have talked as a family and feel that if there is no accepting facility close that can provide hospice services, they would be able to take the patient home. They have previously worked with [facility] and would like to work with them again. I discussed with patient's family what that would look like and that we will let them know how things look as SW hears back from various facilities (notified SW of the desire to work with [facility] for referral initiation as well). Once DIL hung up, continued to talk with at bedside. We discussed her and the patient's life leading up to this illness and how things have gone and what life may be like after his passing. Patient then woke up and asked for ice chips so attending to him and I stepped out but told her to let us know if she needs anything.
--- NOTE | 2021-08-14 12:19 | NUR ---
Received call back from Ravi with [facility]. They would be able to accept the patient today pending order from our hospitalist as the patient doesn't have a PCP. [facility] also able to order DME and supplies to be delivered today. Ravi stated that she would contact the family. Notified GREGORY and Dr. Magaña of acceptance. Will discuss with the family when patient's son and [id number] arrive this afternoon.
--- NOTE | 2021-08-14 12:45 | NUR ---
Met with family at bedside-they are happy to go home with [facility] services. [facility] needs an order from the hospitalist to eval and treat then arrangements can be made. Call out to hospitalist to get that. Family also requested [facility] contact [id number], Rowan, to help with arrangements at the house (#[phone]). [facility] called and I provided Rowan's number to them.
--- NOTE | 2021-08-14 13:08 | NUR ---
Kasey, at [facility], reports that they have declined the patient. Alex, at [facility], reports that they have declined the patient. Sabrina, at [facility], reports that they did not receive the referral; but that that they would not be able to take any admissions until next week.
--- NOTE | 2021-08-14 15:05 | NUR ---
Jeanna, palliative care RN, met with the family. The family has decided to pursue with going home with hospice. They have used [facility] in the past and would like to use them for hospice. GREGORY faxed a referral to [facility] and will be delivering the equipment to the patient's home today at 1700. [facility] asked for a transport time after that. GREGORY met with the patient , Ana, and reviewed the above. Ana reports that her son and [id number] are at home to be there when [facility] delivers the equipment. GREGORY presented and read the IM and EMS Consent Form to Ana. Ana verbalized understanding and signed both forms. Ana declined a copy of the IM. The patient is to discharge back home with his family today, 08/14, on hospice from [facility]. Transportation was scheduled at 1730, via [facility]. GREGORY informed the patient's RN and the of the time. No additional needs at this time.
--- NOTE | 2021-08-14 15:06 | NUR ---
Formal script with eval and treat order for hospice faxed to [facility] as requested. Ravi from [facility] called and notified me that they will have DME arriving at the home around 5pm. SW setting up EMS transport at 5:30pm and notifying [facility] nurse that will be admitting patient, of transport time once finalized at #[phone]. Notified of times and she verified she has been in contact with [facility] as well.
--- NOTE | 2021-08-14 17:15 | NUR ---
PATIENT GIVEN PRN IV MORPHINE & IV ATIVAN PER REQUEST BEFORE DISCHARGE. DC-ACCESSED PORT FOR DISCHARGE. PEG TUBE CLAMPED. NUNEZ EMPTIED. PACKING PERSONAL BELONGINGS. PATIENT READY FOR EMS TRANSPORT.
--- NOTE | 2021-08-14 17:37 | NUR ---
EMS ARRIVED TO TRANSFER PATIENT TO HOME WITH HOSPICE. LEFT TO GO GET THINGS READY AT HOME. INFO PACKET GIVEN TO EMS. PATIENT DISCHARGED.
== END 2021-08-14 17:37 | disposition hospice, home (50) | DRG 392 ==
LOC: COL.ER 12:37 → SURG 15:11
PROVIDERS: Emergency Medicine; Internal Medicine; Physician Assistant; ADMIT Internal Medicine
DX: A09 Infectious gastroenteritis and colitis, unspecified (principal); N39.0 Urinary tract infection, site not specified; N13.8 Other obstructive and reflux uropathy; C15.9 Malignant neoplasm of esophagus, unspecified; C16.9 Malignant neoplasm of stomach, unspecified; N40.1 Benign prostatic hyperplasia with lower urinary tract symptoms; R33.8 Other retention of urine; B96.1 Klebsiella pneumoniae [K. pneumoniae] as the cause of diseases classified elsewhere; Z20.822 Contact with and (suspected) exposure to COVID-19; Z87.891 Personal history of nicotine dependence; Z51.5 Encounter for palliative care
CPT/HCPCS: OP; 99231-AI; 99232-AI; 99233-AI; 99239; A4314; G0378; J0780; J1200; J1650; J1956; J2060; J2270; J2405; J2543; J2550; J2765; J3010; J7120; Q9967